=== PATIENT | female | born 1930 | race Caucasian/White ===

== ENCOUNTER 2017-02-22 20:20 | Observation (INO) | payer MEDICARE ==
[2017-02-22 20:35] VITALS: BP 130/86; PULSE 45; RESP 22; TEMP 97.7; O2SAT 100
[2017-02-22] MEDS ORDERED: ONDANSETRON HCL 4 MG/2 ML VIAL IV PUSH ONE (20:45)
[2017-02-22] MEDS ORDERED: SODIUM CHLOR 0.9% 1000 ML INJ 1,000 ML IV ONE (20:45)
[2017-02-22 20:50] VITALS: O2SAT 99
--- NOTE | 2017-02-22 21:09 | RADRPT ---
EXAM DATE/TIME: 02/22/2017 20:58 [facility] COMPARISON: No previous studies available for comparison. INDICATIONS : Cough. MEDICAL HISTORY : None. SURGICAL HISTORY : Coronary artery stent. ENCOUNTER: Initial ACUITY: 1 day PAIN SCORE: 0/10 LOCATION: Bilateral chest FINDINGS: A single view of the chest demonstrates the lungs to be symmetrically aerated without evidence of mas s, infiltrate or effusion. The cardiomediastinal contours are unremarkable. Osseous structures are intact. CONCLUSION: No evidence of acute cardiopulmonary disease. Antonio Sidhu MD on February 22, 2017 at 21:07 Board Certified Radiologist. This report was verified electronically.
[2017-02-22 21:28] LABS: AUTOMATED NEUTROPHIL # 6.8 TH/MM3 (1.8-7.7); BASOPHIL % 0.3 % (0.0-2.0); EOSINOPHIL # 0.1 TH/MM3 (0-0.4); HEMATOCRIT 41.6 % (35.0-46.0); HEMOGLOBIN 13.4 GM/DL (11.6-15.3); LYMPH % 21.4 % (9.0-44.0); MEAN CELL VOLUME 86.2 FL (80.0-100.0); MEAN CORPUSCULAR HEMOGLOBIN 27.8 PG (27.0-34.0); MEAN CORPUSCULAR HGB CONC 32.3 % (32.0-36.0); MEAN PLATELET VOLUME 10.2 FL (7.0-11.0); MONO % 3.3 % (0.0-8.0); MONOCYTE # 0.3 TH/MM3 (0-0.9); PLATELET COUNT 258 TH/MM3 (150-450); RED BLOOD COUNT 4.83 MIL/MM3 (4.00-5.30); RED CELL DISTRIBUTION WIDTH 14.8 % (11.6-17.2); WHITE BLOOD COUNT 9.2 TH/MM3 (4.0-11.0)
[2017-02-22 21:38] LABS: CHLORIDE 105 MEQ/L (98-107); SODIUM (NA) 140 MEQ/L (136-145)
[2017-02-22 21:42] LABS: ALBUMIN 3.6 GM/DL (3.4-5.0); BICARBONATE 24.2 MEQ/L (21.0-32.0); BLOOD UREA NITROGEN 26 MG/DL (7-18); CALCIUM 9.3 MG/DL (8.5-10.1); GLUCOSE,RANDOM 107 MG/DL (74-106); LIPASE 175 U/L (73-393)
[2017-02-22 21:43] LABS: INTERNATIONAL NORMALIZED RATIO 1.1 RATIO; PROTHROMBIN TIME - PATIENT 10.8 SEC (9.8-11.6)
[2017-02-22 21:45] LABS: ALT (GPT) 78 U/L (10-53); AST (GOT) 42 U/L (15-37); GLOMERULAR FILTRATION RATE 53 ML/MIN (>89)
[2017-02-22 21:47] LABS: TOTAL BILIRUBIN ADULT 0.5 MG/DL (0.2-1.0); TOTAL PROTEIN 8.7 GM/DL (6.4-8.2)
[2017-02-22 21:48] LABS: ALKALINE PHOSPHATASE 121 U/L (45-117)
[2017-02-22 21:50] LABS: TROPONIN I LESS THAN 0.02 NG/ML (0.02-0.05)
[2017-02-22 22:05] LABS: BILIRUBIN, URINE NEG (NEG); BLOOD, URINE MOD (NEG); GLUCOSE,URINE NEG (NEG); KETONE, URINE 15 mg/dL (NEG); NITRITE,URINE NEG (NEG); URINE LEUKOCYTE ESTERASE NEG (NEG)
--- NOTE | 2017-02-22 22:09 | PD ---
HPI Chief Complaint: General Weakness Time Seen by Provider: 20:36 Travel History International Travel<30 days: No Contact w/Intl Traveler<30days: No Traveled to known affect area: No History of Present Illness HPI 86-year-old female from [place], here visiting her son, here in the emergency department for evaluation of nausea, vomiting, diarrhea, generalized malaise, cough, headache. Symptoms have been going on for about a week. Patient went to an urgent care facility a couple of days ago where she was told that she does not have the flu. Her symptoms have not improved. Emesis is bilious, nonbloody. Cough is nonproductive. Today the patient began to have retro- orbital eye pain. She denies abdominal pain. No chest pain. She is unsure if she has had a fever. PFSH Past Medical History Cardiovascular Problems: Yes (stents, leaky heart valve) High Cholesterol: Yes Chemotherapy: No Cerebrovascular Accident: No Diabetes: No Diminished Hearing: Yes Genitourinary: Yes (bladder pump) Hiatal Hernia: Yes Respiratory: No Thyroid Disease: Yes Tetanus Vaccination: Unknown Influenza Vaccination: No ?: Not Past Surgical History Cardiac Surgery: Yes (stent) Coronary Stent: Yes Genitourinary Surgery: Yes (Bladder pump) Hysterectomy: Yes Social History Alcohol Use: Yes (social drinker) Tobacco Use: No Substance Use: No Allergies-Medications (Allergen,Severity, Reaction): Coded Allergies: No Known Allergies (Unverified , 02/22/17) Reported Meds & Prescriptions Reported Meds & Active Scripts Active Reported Lisinopril 20 Mg Tab 20 Mg PO DAILY Pravastatin 40 Mg Tab 40 Mg PO DAILY Levothyroxine (Levothyroxine Sodium) 75 Mcg Tab 75 Mcg PO DAILY Metoprolol Succinate ER 24 HR (Metoprolol Succinate) 25 Mg Tab 25 Mg PO BID Aspirin Children's (Aspirin) 81 Mg Chew 81 Mg CHEW DAILY Review of Systems Except as stated in HPI: all other systems reviewed are Neg Physical Exam Narrative GENERAL: Well-developed, well-nourished, awake, pleasant, vomiting into an emesis bag SKIN: Focused skin assessment warm/dry. No rash. HEAD: Atraumatic. Normocephalic. EYES: Pupils equal, round, 3 mm, reactive to light. EOMI. No scleral icterus. No injection or drainage. ENT: No nasal bleeding or discharge. Mucous membranes pink and moist. NECK: Trachea midline. No JVD. No nuchal rigidity. CARDIOVASCULAR: Regular rate and rhythm. RESPIRATORY: No accessory muscle use. Clear to auscultation. Breath sounds equal bilaterally. GASTROINTESTINAL: Abdomen soft, non-tender, nondistended. MUSCULOSKELETAL: No obvious deformities. No clubbing. No cyanosis. No edema. NEUROLOGICAL: Awake and alert. No obvious cranial nerve deficits. Motor grossly within normal limits. Normal speech. PSYCHIATRIC: Appropriate mood and affect; insight and judgment normal. Data Data Last Documented VS Vital Signs Date Time Temp Pulse Resp B/P (MAP) Pulse Ox O2 Delivery O2 Flow Rate FiO2 02/23/17 00:24 98.8 74 20 184/80 (114) 98 Nasal Cannula 2.00 Orders Orders Sepsis Workup Initiated (02/22/17 ) Electrocardiogram (02/22/17 20:44) Complete Blood Count With Diff (02/22/17 20:44) Comprehensive Metabolic Panel (02/22/17 20:44) Prothrombin Time / Inr (Pt) (02/22/17 20:44) Act Partial Throm Time (Ptt) (02/22/17 20:44) Lactic Acid Sepsis Protocol (02/22/17 20:44) Lipase (02/22/17 20:44) Ckmb (Isoenzyme) Profile (02/22/17 20:44) Troponin I (02/22/17 20:44) Urinalysis - C+S If Indicated (02/22/17 20:44) Influenzae A/B Antigen (02/22/17 20:44) Blood Culture (02/22/17 20:44) Chest, Single Ap (02/22/17 20:44) Blood Glucose (02/22/17 20:44) Ecg Monitoring (02/22/17 20:44) Iv Access Insert/Monitor (02/22/17 20:44) Oximetry (02/22/17 20:44) Oxygen Administration (02/22/17 20:44) Ct Brain W/O Iv Contrast(Rout) (02/22/17 ) Ct Abd/Pel W/O Iv Contrast (02/22/17 ) Ondansetron Inj (Zofran Inj) (02/22/17 20:45) Sodium Chlor 0.9% 1000 Ml Inj (Ns 1000 M (02/22/17 20:45) Electrocardiogram (02/22/17 20:35) CKMB (02/22/17 20:30) CKMB% (02/22/17 20:30) Metoclopramide Inj (Reglan Inj) (02/22/17 22:30) Acetaminophen (Tylenol) (02/22/17 23:00) Lisinopril (Prinivil) (02/22/17 23:30) Place In Observation (02/23/17 ) Vital Signs (Adult) Q4H (02/23/17 00:40) Activity Oob With Assistance (02/23/17 00:40) Certified Medical Technician / Telemetry .CONTINUOUS (02/23/17 00:40) Intake + Output RICHARD.QSHIFT (02/23/17 00:40) Diet Regular Basic (02/23/17 Breakfast) Sodium Chlor 0.9% 1000 Ml Inj (Ns 1000 M (02/23/17 00:40) Sodium Chloride 0.9% Flush (Ns Flush) (02/23/17 00:45) Sodium Chloride 0.9% Flush (Ns Flush) (02/23/17 09:00) Ondansetron Inj (Zofran Inj) (02/23/17 00:45) Comprehensive Metabolic Panel (02/24/17 06:00) Complete Blood Count With Diff (02/24/17 06:00) Scd Bilateral/Knee High RICHARD.BID (02/23/17 00:40) [place] Bilateral/Knee High RICHARD.QSHIFT (02/23/17 00:41) Acetaminophen (Tylenol) (02/23/17 00:45) Acetamin-Hydrocod 325-5 Mg ([place] 5-325 (02/23/17 00:45) Morphine Inj (Morphine Inj) (02/23/17 00:45) Docusate Sodium-Senna (Jing-Colace) (02/23/17 09:00) Magnesium Hydroxide Liq (Milk Of Magnesi (02/23/17 00:45) Sennosides (Senokot) (02/23/17 00:45) Bisacodyl Supp (Dulcolax Supp) (02/23/17 00:45) Lactulose Liq (Lactulose Liq) (02/23/17 00:45) Famotidine Inj (Pepcid Inj) (02/23/17 01:00) Pravastatin (Pravachol) (02/23/17 09:00) Admit Order (Ed Use Only) (02/23/17 01:03) Labs Laboratory Tests Test 02/22/17 20:30 02/22/17 21:45 White Blood Count 9.2 TH/MM3 Red Blood Count 4.83 MIL/MM3 Hemoglobin 13.4 GM/DL Hematocrit 41.6 % Mean Corpuscular Volume 86.2 FL Mean Corpuscular Hemoglobin 27.8 PG Mean Corpuscular Hemoglobin Concent 32.3 % Red Cell Distribution Width 14.8 % Platelet Count 258 TH/MM3 Mean Platelet Volume 10.2 FL Neutrophils (%) (Auto) 74.0 % Lymphocytes (%) (Auto) 21.4 % Monocytes (%) (Auto) 3.3 % Eosinophils (%) (Auto) 1.0 % Basophils (%) (Auto) 0.3 % Neutrophils # (Auto) 6.8 TH/MM3 Lymphocytes # (Auto) 2.0 TH/MM3 Monocytes # (Auto) 0.3 TH/MM3 Eosinophils # (Auto) 0.1 TH/MM3 Basophils # (Auto) 0.0 TH/MM3 CBC Comment DIFF FINAL Differential Comment Prothrombin Time 10.8 SEC Prothromb Time International Ratio 1.1 RATIO Activated Partial Thromboplast Time 24.0 SEC Blood Urea Nitrogen 26 MG/DL Creatinine 1.00 MG/DL Random Glucose 107 MG/DL Total Protein 8.7 GM/DL Albumin 3.6 GM/DL Calcium Level 9.3 MG/DL Alkaline Phosphatase 121 U/L Aspartate Amino Transf (AST/SGOT) 42 U/L Alanine Aminotransferase (ALT/SGPT) 78 U/L Total Bilirubin 0.5 MG/DL Sodium Level 140 MEQ/L Potassium Level 3.8 MEQ/L Chloride Level 105 MEQ/L Carbon Dioxide Level 24.2 MEQ/L Anion Gap 11 MEQ/L Estimat Glomerular Filtration Rate 53 ML/MIN Lactic Acid Level 1.4 mmol/L Total Creatine Kinase 130 U/L Creatine Kinase MB 3.5 NG/ML Troponin I LESS THAN 0.02 NG/ML Lipase 175 U/L Urine Collection Type CATH Urine Color STRAW Urine Turbidity CLEAR Urine pH 6.0 Urine Specific [place] Urine Protein TRACE mg/dL Urine Glucose (UA) NEG mg/dL Urine Ketones 15 mg/dL Urine Occult Blood MOD Urine Nitrite NEG Urine Bilirubin NEG Urine Leukocyte Esterase NEG Urine RBC 0-3 /hpf Urine Squamous Epithelial Cells 0-5 /hpf Urine Mucus FEW /lpf Microscopic Urinalysis Comment CATH-CULT NOT IND MDM Medical Decision Making Medical Screen Exam Complete: Yes Emergency Medical Condition: Yes Medical Record Reviewed: Yes Differential Diagnosis Influenza, viral illness, food poisoning, gastroenteritis, intracranial abnormality, acute intra-abdominal abnormality, dehydration, metabolic abnormality Narrative Course Upon arrival to the emergency department the patient's heart rate was noted to be in the 40s. EKG performed at that time shows sinus bradycardia with sinus arrhythmia, rate 44, normal axis, normal intervals, no acute ischemic abnormality. Shortly after the initial EKG was performed the patient had a coughing episode and her heart rate was noticed to be in the 60s. EKG at time shows heart rate 67, normal axis, normal intervals, no acute ischemic abnormality. Initial vital signs show heart rate 45, blood pressure 130/86, pulse ox 100% on room air, oral temp of 97.7F. CBC is essentially unremarkable. CMP is remarkable for BUN 26, creatinine 1.00, GFR 53, AST 42, ALT 78, otherwise unremarkable. Lipase is 175. Lactic acid is 1.4. Cardiac enzymes are negative. UA: 15 ketones, moderate occult blood, few mucus. Chest x-ray: No evidence of acute cardiopulmonary disease. Influenza is negative. CT head: CONCLUSION: 1. No acute abnormality seen. 2. Age-appropriate atrophy. CT abdomen pelvis: CONCLUSION: 1. Small focus of air within the urinary bladder. This should be correlated the patient had a recent catheterization. 2. Colonic diverticula in the sigmoid region without significant inflammatory change. 3. Minimal hiatal hernia. 4. Prominent fat at the right inguinal canal potentially representing a hernia. No bowel seen in this region. 5. Past right calcifications. 6. Tiny nonobstructing left renal stone. The patient has an easily reducible right inguinal hernia. Straight cath was also performed to obtain a urine specimen, thus the small focus of air within the bladder seen on CT. The patient's son Merlin was at the bedside shortly after the patient arrived to the emergency department. He was made aware of all laboratory findings. He decided to go home prior to CTs. Patient was made aware of all findings. Headache improved with Tylenol and IV Reglan. Patient was initially given Zofran and continued to have nausea and vomiting. This seems to have improved after she received Reglan. She still feels a little nauseous. Patient's heart rate was in the 40s when she presented , an EKG showed sinus bradycardia. After coughing, this improved to the 60s. Patient occasionally drops down into the 40s again. She seems to be asymptomatic when this occurs, however, like to admit her to the hospital for overnight observation for intractable nausea as well as these intermittent episodes of sinus bradycardia. Case discussed with hospitalist Dr. Frazier who will admit the patient to the hospitalist service. Diagnosis Primary Impression: Gastroenteritis Additional Impressions: Intractable nausea and vomiting Qualified Codes: R11.2 - Nausea with vomiting, unspecified Reducible right inguinal hernia Sinus bradycardia Admitting Information Admitting Physician Requests: Observation Pedro Hurd MD Feb 22, 2017 22:09
[2017-02-22 22:12] LABS: URINE COLOR STRAW (YELLW/STRAW)
[2017-02-22 22:13] LABS: MUCUS URINE FEW /lpf (OCC); RBC, URINE 0-3 /hpf (0-3); SQUAMOUS EPITHELIAL CELL URINE 0-5 /hpf (0-5)
[2017-02-22] MEDS ORDERED: METOCLOPRAMIDE HCL 10 MG/2 ML VIAL IV PUSH ONE (22:30)
[2017-02-22 22:50] VITALS: BP 224/67; PULSE 55; RESP 22; TEMP 97.4; O2SAT 100
[2017-02-22] MEDS ORDERED: ACETAMINOPHEN 325 MG TAB PO ONE (23:00)
[2017-02-22] MEDS ORDERED: LISINOPRIL 20 MG TAB PO ONE (23:30)
--- NOTE | 2017-02-23 00:02 | RADRPT ---
EXAM DATE/TIME: 02/22/2017 23:16 [facility] COMPARISON: No previous studies available for comparison. INDICATIONS : Cephalgia. Weakness. RADIATION DOSE: 59.12 CTDIvol (mGy) MEDICAL HISTORY : Cardiovascular disease. SURGICAL HISTORY : Coronary artery stent. ENCOUNTER: Initial ACUITY: 1 day PAIN SCALE: 0/10 LOCATION: cranial TECHNIQUE: Multiple contiguous axial images were obtained of the head. Using automated exposure control and adj ustment of the mA and/or kV according to patient size, radiation dose was kept as low as reasonably a chievable to obtain optimal diagnostic quality images. DICOM format image data is available electro nically for review and comparison. FINDINGS: CEREBRUM: The ventricles and cortical sulci are mildly widened. No evidence of midline shift, mass lesion, hem orrhage or acute infarction. No extra-axial fluid collections are seen. POSTERIOR FOSSA: The cerebellum and brainstem are intact. The 4th ventricle is midline. The cerebellopontine angle i s unremarkable. EXTRACRANIAL: The visualized portion of the orbits is intact. SKULL: The calvaria is intact. No evidence of skull fracture. CONCLUSION: 1. No acute abnormality seen. 2. Age-appropriate atrophy. Antonio Luther MD on February 22, 2017 at 23:58 Board Certified Radiologist. This report was verified electronically.
--- NOTE | 2017-02-23 00:13 | RADRPT ---
EXAM DATE/TIME: 02/22/2017 23:19 [facility] COMPARISON: No previous studies available for comparison. INDICATIONS : Abdominal pain. Weakness. Nausea. Vomiting. ORAL CONTRAST: No oral contrast ingested. RADIATION DOSE: 12.98 CTDIvol (mGy) MEDICAL HISTORY : Cardiovascular disease. Hernia, hiatal. SURGICAL HISTORY : Coronary artery stent. Hysterectomy.Bladder pump. ENCOUNTER: Initial ACUITY: 1 day PAIN SCALE: 4/10 LOCATION: Bilateral upper quadrant lower quadrant. TECHNIQUE: Volumetric scanning of the abdomen and pelvis was performed. Using automated exposure control and ad justment of the mA and/or kV according to patient size, radiation dose was kept as low as reasonably achievable to obtain optimal diagnostic quality images. DICOM format image data is available electro nically for review and comparison. FINDINGS: LOWER LUNGS: There is minimal increased density at the lateral left base likely related to mild atelectasis or con solidation. LIVER: Homogeneous density without lesion. There is no dilation of the biliary tree. The patient is status post cholecystectomy. SPLEEN: Normal size without lesion. PANCREAS: Within normal limits. KIDNEYS: Normal in size and shape. There is a 2 mm nonobstructing left renal stone seen in the mid left colle cting system. There is no mass or hydronephrosis. There is a chronic calcification seen adjacent to t he distal left ureter. A ureteral calcification is not clearly seen. ADRENAL GLANDS: Within normal limits. VASCULAR: There is no aortic aneurysm. There are atherosclerotic calcification seen throughout. BOWEL/MESENTERY: There is scattered colonic diverticula in the sigmoid region. Significant inflammatory change is not seen. There is a minimal hiatal hernia present. ABDOMINAL WALL: Within normal limits. RETROPERITONEUM: There is no lymphadenopathy. BLADDER: There is a small focus of air within the urinary bladder. REPRODUCTIVE: The patient is status post hysterectomy. INGUINAL: There is prominent fat extending into the right inguinal canal. No bowel is seen in this region. Sign ificant adenopathy is not present. MUSCULOSKELETAL: There is electronic device seen over the right gluteal region with a lead extending to the left side of the sacrum. There is degenerative change in the lumbar spine. CONCLUSION: 1. Small focus of air within the urinary bladder. This should be correlated the patient had a recent catheterization. 2. Colonic diverticula in the sigmoid region without significant inflammatory change. 3. Minimal hiatal hernia. 4. Prominent fat at the right inguinal canal potentially representing a hernia. No bowel seen in this region. 5. Past right calcifications. 6. Tiny nonobstructing left renal stone. Antonio Luther MD on February 23, 2017 at 0:00 Board Certified Radiologist. This report was verified electronically.
[2017-02-23] MEDS ORDERED: PRAV40TA2 PO (00:20)
[2017-02-23] MEDS ORDERED: METO1TAB42 PO (00:20)
[2017-02-23] MEDS ORDERED: LEVO75TA3 PO (00:20)
[2017-02-23] MEDS ORDERED: LISI-515 PO (00:20)
[2017-02-23] MEDS ORDERED: ASPI81CH7 CHEW (00:20)
[2017-02-23 00:24] VITALS: BP 184/80; PULSE 74; RESP 20; TEMP 98.8; O2SAT 98
[2017-02-23] MEDS ORDERED: SODIUM CHLOR 0.9% 1000 ML INJ 1,000 ML IV SCH (00:40)
[2017-02-23] MEDS ORDERED: SENNOSIDES 8.6 MG TAB PO PRN (00:45)
[2017-02-23] MEDS ORDERED: LACTULOSE SYRUP 20 GM/30 ML CUP PO PRN (00:45)
[2017-02-23] MEDS ORDERED: BISACODYL 10 MG SUPP RECTAL PRN (00:45)
[2017-02-23] MEDS ORDERED: MAGNESIUM HYDROXIDE SUSP 30 ML CUP PO PRN (00:45)
[2017-02-23] MEDS ORDERED: MORPHINE SULFATE 2 MG/ML INJ IV PUSH PRN (00:45)
[2017-02-23] MEDS ORDERED: ACETAMINOPHEN 325 MG TAB PO PRN (00:45)
[2017-02-23] MEDS ORDERED: ONDANSETRON HCL 4 MG/2 ML VIAL IVP PRN (00:45)
[2017-02-23] MEDS ORDERED: ACETAMINOPHEN/HYDROcodone 325 MG/5 MG TAB PO PRN (00:45)
[2017-02-23] MEDS ORDERED: SODIUM CHLORIDE 0.9% FLUSH 10 ML FLUSH IV FLUSH PRN (00:45)
[2017-02-23] MEDS ORDERED: FAMOTIDINE 20 MG/2 ML VIAL IV PUSH SCH (01:00)
[2017-02-23 03:53] VITALS: BP 191/64; PULSE 48; RESP 20; O2SAT 99
[2017-02-23 06:39] VITALS: BP 151/55; PULSE 44; RESP 20; TEMP 97.4; O2SAT 96
[2017-02-23 06:41] VITALS: BP 156/48; PULSE 49; RESP 20; O2SAT 98
[2017-02-23 07:00] VITALS: BP 166/63; PULSE 47; RESP 16; TEMP 97.7; O2SAT 96
[2017-02-23] MEDS ORDERED: PRAVASTATIN SOD 40 MG TAB PO SCH (09:00)
[2017-02-23] MEDS ORDERED: SODIUM CHLORIDE 0.9% FLUSH 10 ML FLUSH IV FLUSH SCH (09:00)
[2017-02-23] MEDS ORDERED: DOCUSATE SODIUM 50 MG/SENNA 8.6 MG TAB PO SCH (09:00)
--- NOTE | 2017-02-23 09:58 | HHI.HP ---
[facility] Service [facility] Primary Care Physician Unknown Admission Diagnosis gastroenteritis, sinus bradycardia, intractable nausea and vomiting, Diagnoses: Chief Complaint: Intractable emesis and diarrhea Travel History International Travel<30 Days: No Contact w/Intl Traveler <30 Da: No Traveled to Known Affected Are: No History of Present Illness This is a pleasant 86-year-old female past medical history of hypertension, hyperlipidemia, coronary disease status post stent placement, and hypothyroidism who presented with headache, intractable emesis, diarrhea. Patient stated that after eating a salad yesterday she started having multiple episodes of emesis described as yellow to orange in color. She also had multiple episodes of diarrhea. Patient stated that she also had her migraines during this episode in which she took Tylenol with relief. She stated that symptoms all resolved last night. During my interview with the patient she denies any abdominal pain, nausea/ vomiting, diarrhea, or headache. Patient stated that the last migraine she had was a few years ago but the symptoms are very similar to her symptoms at home. During her hospitalization she was also found to have bradycardia. Patient is on metoprolol. Patient is unsure she has a history of bradycardia. She denies any lightheadedness dizziness, chest pain, palpitation, or shortness of breathing. Patient stated that she is back to her baseline very anxious to go home. She does have a cough for the past week secondary to postnasal dripping. Patient is visiting her son. She is from [place]. Her son is at the bedside during the interview. All other review system review negative. Past Family Social History Past Medical History Hypertension Hyperlipidemia Coronary disease Hypothyroidism Past Surgical History Cardiac catheterization with stent placement 10 years ago Appendectomy Tonsillectomy Hysterectomy Hand surgery Reported Medications Lisinopril 20 Mg Tab 20 Mg PO DAILY Pravastatin 40 Mg Tab 40 Mg PO DAILY Levothyroxine (Levothyroxine Sodium) 75 Mcg Tab 75 Mcg PO DAILY Aspirin Children's (Aspirin) 81 Mg Chew 81 Mg CHEW DAILY Allergies: Coded Allergies: No Known Allergies (Unverified , 02/22/17) Active Ordered Medications Current Medications Ondansetron HCl (Zofran Inj) 4 mg ONCE ONCE IV PUSH Last administered on at 21:02; Start 02/22/17 at 20:45; Stop 02/22/17 at 20:48; Status DC Sodium Chloride 1,000 ml @ 999 mls/hr BOLUS ONCE IV Last administered on 02/22at 21:02; Start 02/22/17 at 20:45; Stop 02/22/17 at 21:45; Status DC Metoclopramide HCl (Reglan Inj) 10 mg ONCE ONCE IV PUSH Last administered on at 22:44; Start 02/22/17 at 22:30; Stop 02/22/17 at 22:31; Status DC Acetaminophen (Tylenol) 650 mg ONCE ONCE PO Last administered on 02/22/17at 23: 37; Start 02/22/17 at 23:00; Stop 02/22/17 at 23:01; Status DC Lisinopril (Prinivil) 20 mg ONCE ONCE PO Last administered on 02/22/17at 23:37 ; Start 02/22/17 at 23:30; Stop 02/22/17 at 23:31; Status DC Sodium Chloride 1,000 ml @ 100 mls/hr Q10H IV Last administered on 02/23/17at 01:16; Start 02/23/17 at 00:40; Stop 02/23/17 at 11:31; Status DC Sodium Chloride (NS Flush) 2 ml UNSCH PRN IV FLUSH FLUSH AFTER USING IV ACCESS ; Start 02/23/17 at 00:45; Stop 02/23/17 at 11:31; Status DC Sodium Chloride (NS Flush) 2 ml BID IV FLUSH Last administered on 02/23/17at 09: 32; Start 02/23/17 at 09:00; Stop 02/23/17 at 11:31; Status DC Ondansetron HCl (Zofran Inj) 4 mg Q6H PRN IVP NAUSEA OR VOMITING; Start at 00:45; Stop 02/23/17 at 11:31; Status DC Acetaminophen (Tylenol) 650 mg Q6H PRN PO FEVER/PAIN SCALE 1 TO 2; Start at 00:45; Stop 02/23/17 at 11:31; Status DC Acetaminophen/ Hydrocodone Bitart ([place] 5-325 Mg) 1 tab Q4H PRN PO PAIN SCALE 3 TO 5; Start 02/23/17 at 00:45; Stop 02/23/17 at 11:31; Status DC Morphine Sulfate (Morphine Inj) 2 mg Q3H PRN IV PUSH Pain 6-10; Start 02/23/17 at 00:45; Stop 02/23/17 at 11:31; Status DC Senna/Docusate Sodium (Jing-Colace) 1 tab BID PO Last administered on at 08:38; Start 02/23/17 at 09:00; Stop 02/23/17 at 11:31; Status DC Magnesium Hydroxide (Milk Of Magnesia Liq) 30 ml Q12H PRN PO Mild constipation ; Start 02/23/17 at 00:45; Stop 02/23/17 at 11:31; Status DC Sennosides (Senokot) 17.2 mg Q12H PRN PO Moderate constipation; Start 02/23/17 at 00:45; Stop 02/23/17 at 11:31; Status DC Bisacodyl (Dulcolax Supp) 10 mg DAILY PRN RECTAL SEVERE CONSITIPATION; Start at 00:45; Stop 02/23/17 at 11:31; Status DC Lactulose (Lactulose Liq) 30 ml DAILY PRN PO SEVERE CONSITIPATION; Start at 00:45; Stop 02/23/17 at 11:31; Status DC Famotidine (Pepcid Inj) 20 mg Q12H IV PUSH Last administered on 02/23/17at 01:16 ; Start 02/23/17 at 01:00; Stop 02/23/17 at 11:31; Status DC Pravastatin Sodium (Pravachol) 40 mg DAILY PO Last administered on 02/23/17at 08 :39; Start 02/23/17 at 09:00; Stop 02/23/17 at 11:31; Status DC Family History Review past family history noncontributory. Social History Lives in [facility]. Denies any tobacco,alcohol, or illicit drug use. Physical Exam Vital Signs Vital Signs Date Time Temp Pulse Resp B/P (MAP) Pulse Ox O2 Delivery O2 Flow Rate FiO2 02/23/17 07:00 96 Nasal Cannula 2.00 02/23/17 07:00 97.7 47 16 166/63 (97) 96 Nasal Cannula 2.00 02/23/17 07:00 49 16 96 Nasal Cannula 2.00 02/23/17 06:41 49 20 156/48 (84) 98 02/23/17 06:39 97.4 44 20 151/55 (87) 96 02/23/17 03:53 48 20 191/64 (106) 99 Nasal Cannula 2.00 02/23/17 00:24 98.8 74 20 184/80 (114) 98 Nasal Cannula 2.00 02/22/17 22:50 97.4 55 22 224/67 (119) 100 Room Air 02/22/17 20:50 99 2.00 02/22/17 20:50 Nasal Cannula 2.00 02/22/17 20:49 99 2.00 02/22/17 20:35 97.7 45 22 130/86 (101) 100 Physical Exam GENERAL: This is a well-nourished, well-developed patient, in no apparent distress. SKIN: No rashes, ecchymoses or lesions. Cool and dry. HEAD: Atraumatic. Normocephalic. No temporal or scalp tenderness. EYES: Pupils equal round and reactive. Extraocular motions intact. No scleral icterus. No injection or drainage. ENT: Nose without bleeding, purulent drainage or septal hematoma. Throat without erythema, tonsillar hypertrophy or exudate. Uvula midline. Airway patent. NECK: Trachea midline. No JVD or lymphadenopathy. Supple, nontender, no meningeal signs. CARDIOVASCULAR: Regular rate and rhythm without murmurs, gallops, or rubs. RESPIRATORY: Clear to auscultation. Breath sounds equal bilaterally. No wheezes , rales, or rhonchi. GASTROINTESTINAL: Abdomen soft, non-tender, nondistended. No hepato-splenomegaly , or palpable masses. No guarding. MUSCULOSKELETAL: Extremities without clubbing, cyanosis, or edema. No joint tenderness, effusion, or edema noted. No calf tenderness. Negative Homans sign bilaterally. NEUROLOGICAL: Awake and alert. Cranial nerves II through XII intact. Motor and sensory grossly within normal limits. Five out of 5 muscle strength in all muscle groups. Normal speech. Laboratory Laboratory Tests Test 02/22/17 20:30 02/22/17 21:45 White Blood Count 9.2 Red Blood Count 4.83 Hemoglobin 13.4 Hematocrit 41.6 Mean Corpuscular Volume 86.2 Mean Corpuscular Hemoglobin 27.8 Mean Corpuscular Hemoglobin Concent 32.3 Red Cell Distribution Width 14.8 Platelet Count 258 Mean Platelet Volume 10.2 Neutrophils (%) (Auto) 74.0 Lymphocytes (%) (Auto) 21.4 Monocytes (%) (Auto) 3.3 Eosinophils (%) (Auto) 1.0 Basophils (%) (Auto) 0.3 Neutrophils # (Auto) 6.8 Lymphocytes # (Auto) 2.0 Monocytes # (Auto) 0.3 Eosinophils # (Auto) 0.1 Basophils # (Auto) 0.0 CBC Comment DIFF FINAL Differential Comment Prothrombin Time 10.8 Prothromb Time International Ratio 1.1 Activated Partial Thromboplast Time 24.0 Blood Urea Nitrogen 26 Creatinine 1.00 Random Glucose 107 Total Protein 8.7 Albumin 3.6 Calcium Level 9.3 Alkaline Phosphatase 121 Aspartate Amino Transf (AST/SGOT) 42 Alanine Aminotransferase (ALT/SGPT) 78 Total Bilirubin 0.5 Sodium Level 140 Potassium Level 3.8 Chloride Level 105 Carbon Dioxide Level 24.2 Anion Gap 11 Estimat Glomerular Filtration Rate 53 Lactic Acid Level 1.4 Total Creatine Kinase 130 Creatine Kinase MB 3.5 Troponin I LESS THAN 0.02 Lipase 175 Urine Collection Type CATH Urine Color STRAW Urine Turbidity CLEAR Urine pH 6.0 Urine Specific [place] Urine Protein TRACE Urine Glucose (UA) NEG Urine Ketones 15 Urine Occult Blood MOD Urine Nitrite NEG Urine Bilirubin NEG Urine Leukocyte Esterase NEG Urine RBC 0-3 Urine Squamous Epithelial Cells 0-5 Urine Mucus FEW Microscopic Urinalysis Comment CATH-CULT NOT IND Date/Time Source Procedure Growth Status 02/22/17 21:10 Blood Peripheral Aerobic Blood Culture Pending Received 02/22/17 21:10 Blood Peripheral Anaerobic Blood Culture Pending Received 02/22/17 21:30 Nasal Washing Influenza Types A,B Antigen (ODESSA) - Final NEGATIVE FOR FLU A AND B ANTIGEN.... Complete Result Diagram: 02/22/17202902/22/172029 Imaging Last Impressions Chest X-Ray 02/22/172043 Signed Impressions: Service Date/Time: Wednesday, February 22, 2017 20:58 - CONCLUSION: No evidence of acute cardiopulmonary disease. Antonio Sidhu MD Head CT 02/22/17 0000 Signed Impressions: Service Date/Time: Wednesday, February 22, 2017 23:16 - CONCLUSION: 1. No acute abnormality seen. 2. Age-appropriate atrophy. Antonio Luther MD Abdomen/Pelvis CT 02/22/17 0000 Signed Impressions: Service Date/Time: Wednesday, February 22, 2017 23:19 - CONCLUSION: 1. Small focus of air within the urinary bladder. This should be correlated the patient had a recent catheterization. 2. Colonic diverticula in the sigmoid region without significant inflammatory change. 3. Minimal hiatal hernia. 4. Prominent fat at the right inguinal canal potentially representing a hernia. No bowel seen in this region. 5. Past right calcifications. 6. Tiny nonobstructing left renal stone. Antonio Luther MD Caprini VTE Risk Assessment Caprini VTE Risk Assessment: Mod/High Risk (score >= 2) Caprini Risk Assessment Model Point Value = 1 Point Value = 2 Point Value = 3 Point Value = 5 Age 41-60 Minor surgery BMI > 25 kg/m2 Swollen legs Varicose veins or History of unexplained or recurrent spontaneous Oral contraceptives or hormone replacement Sepsis (< 1 month) Serious lung disease, including pneumonia (< 1 month) Abnormal pulmonary function Acute myocardial infarction Congestive heart failure (< 1 month) History of inflammatory bowel disease Medical patient at bed rest Age 61-74 Arthroscopic surgery Major open surgery (> 45 min) Laparoscopic surgery (> 45 min) Malignancy Confined to bed (> 72 hours) Immobilizing plaster cast Central venous access Age >= 75 History of VTE Family history of VTE Factor V Leiden Prothrombin [id number] Lupus anticoagulant Anticardiolipin antibodies Elevated serum homocysteine Heparin-induced thrombocytopenia Other congenital or acquired thrombophilia Stroke (< 1 month) Elective arthroplasty Hip, pelvis, or leg fracture Acute spinal cord injury (< 1 month) Prophylaxis Regimen Total Risk Factor Score Risk Level Prophylaxis Regimen 0-1 Low Early ambulation 2 Moderate Order ONE of the following: *Sequential Compression Device (SCD) *Heparin 5000 units SQ BID 3-4 Higher Order ONE of the following medications: *Heparin 5000 units SQ TID *Enoxaparin/Lovenox 40 mg SQ daily (WT < 150 kg, CrCl > 30 mL/min) *Enoxaparin/Lovenox 30 mg SQ daily (WT < 150 kg, CrCl > 10-29 mL/min) *Enoxaparin/Lovenox 30 mg SQ BID (WT < 150 kg, CrCl > 30 mL/min) AND/OR *Sequential Compression Device (SCD) 5 or more Highest Order ONE of the following medications: *Heparin 5000 units SQ TID (Preferred with Epidurals) *Enoxaparin/Lovenox 40 mg SQ daily (WT < 150 kg, CrCl > 30 mL/min) *Enoxaparin/Lovenox 30 mg SQ daily (WT < 150 kg, CrCl > 10-29 mL/min) *Enoxaparin/Lovenox 30 mg SQ BID (WT < 150 kg, CrCl > 30 mL/min) AND *Sequential Compression Device (SCD) Assessment and Plan Assessment and Plan 86-year-old female past medical history of migraines, hypertension, lipidemia, coronary disease has stent placement presented with intractable emesis, [place] and diarrhea Intractable emesis/diarrhea/headache -May be secondary to migraines vs viral syndrome. Patient stated that she has similar symptoms when she had migraines. All her symptoms seems to resolve with Tylenol. -Currently asymptomatic. -CT scan of abdomen and pelvis reviewed showed mild hernia no obstruction. CT scan the brain was negative. Chest x-ray was also negative. Also patient is asymptomatic. -Patient tolerating oral intake. -Labs reviewed with mild elevated LFTs which may suggest viral illness versus statin use. Mild elevated LFTs -Asymptomatic. Patient is on a statin so this may be due to statin use. At the moment since LFTs is mildly elevated is no contraindication to stop statin. So we'll continue pravastatin. -Follow up as outpatient with PCP. Bradycardia, asymptomatic -Most likely secondary to metoprolol and due to emesis that can cause vasovagal. -Patient was able to ambulate without any symptoms. -Will hold metoprolol and patient to follow with PCP within one week to determine if she is able to start metoprolol even at a lower dose. Coronary artery disease -continue aspirin and statin. Metoprolol held secondary to bradycardia. she will follow-up as above. Migraines -And continue with Tylenol as needed for migraines. Cough -2nd Postnasal dripping -Chest x-ray negative. -Patient has Flonase at home. Also recommend Kelly pot or nasal saline rinses. Patient back to baseline and asymptomatic. Medically stable to be discharge. Activity no restriction. Follow-up PCP within 1 week. Continue with cardiac diet. Medication: Continue lisinopril 20 mg by mouth daily, aspirin 21 mg by mouth daily, pravastatin 40 mg at bedtime. Hold metoprolol until seen by primary care physician. Discussed Condition With With the patient, her son and ED nurse. Lala Ortiz MD Feb 23, 2017 09:58
--- NOTE | 2017-02-23 10:28 | HHI.DCPOC ---
Discharge Care Plan Diagnosis: (1) Migraine (2) Intractable nausea and vomiting (3) Gastroenteritis (4) Sinus bradycardia (5) Reducible right inguinal hernia Additional Problems You will need to see your PCP within 1 week in regards to your low heart rate and when to restart metoprolol. Goals to Promote Your Health * To prevent worsening of your condition and complications * To maintain your health at the optimal level Directions to Meet Your Goals Take your medications as prescribed Follow your dietary instruction Follow activity as directed Keep your appointments as scheduled Take your immunizations and boosters as scheduled If your symptoms worsen call your PCP, if no PCP go to Urgent Care Center or Emergency Room Smoking is Dangerous to Your Health. Avoid second hand smoke Call the 24-hour hour crisis hotline for domestic abuse at Lala Ortiz MD Feb 23, 2017 10:28
[2017-02-23 10:30] VITALS: BP 178/63; PULSE 55; RESP 16; O2SAT 96
--- NOTE | 2017-02-23 15:16 | EKG ---
Date Performed: 02/22/2017 Time Performed: 20:44:45 PTAGE: 86 years EKG: Sinus rhythm WITH SINUS ARRHYTHMIA MINIMAL ST DEPRESSION Since previous tracing, no significant change noted [facility] ECG PREVIOUS TRACING : 02/22/2017 20.35 DOCTOR: Jagdish Alaniz Interpretating Date/Time 02/23/2017 15:15:19
--- NOTE | 2017-02-23 15:43 | EKG ---
Date Performed: 02/22/2017 Time Performed: 20:35:59 PTAGE: 86 years EKG: SINUS BRADYCARDIA WITH SINUS ARRHYTHMIA MODERATE ST DEPRESSION ABNORMAL ECG NO PREVIOUS TRACING DOCTOR: Jagdish Alaniz Interpretating Date/Time 02/23/2017 15:42:29
== END 2017-02-23 11:30 | disposition home or self-care (01) ==
LOC: PHED 20:20 → PHEDA 02-23 01:04 → PHEDH 02-23 05:03
PROVIDERS: ADMIT Family Medicine; ATTEND Family Medicine
DX: K52.9 Noninfective gastroenteritis and colitis, unspecified (principal); G43.909 Migraine, unspecified, not intractable, without status migrainosus; K40.90 Unilateral inguinal hernia, without obstruction or gangrene, not specified as recurrent; R00.1 Bradycardia, unspecified; N20.0 Calculus of kidney; H57.10 Ocular pain, unspecified eye; I49.9 Cardiac arrhythmia, unspecified; R94.31 Abnormal electrocardiogram [ECG] [EKG]; R05 Cough; I25.10 Atherosclerotic heart disease of native coronary artery without angina pectoris; I10 Essential (primary) hypertension; E78.00 Pure hypercholesterolemia, unspecified; R79.89 Other specified abnormal findings of blood chemistry; E03.9 Hypothyroidism, unspecified; K57.30 Diverticulosis of large intestine without perforation or abscess without bleeding; K44.9 Diaphragmatic hernia without obstruction or gangrene; H91.90 Unspecified hearing loss, unspecified ear; Z95.5 Presence of coronary angioplasty implant and graft; Z79.899 Other long term (current) drug therapy; Z79.82 Long term (current) use of aspirin
CPT/HCPCS: 70450; 71045; 74176; 80053; 81001; 82550; 82552; 83605; 83690; 84484; 85025; 85610; 85730; 87040; 87804; 93005; 96361; 96374; 96375; 99285; G0378; J2405; J2765; J7030; P9612